=== PATIENT | female | born 1980 | race Hispanic/Latino ===

== ENCOUNTER 2016-10-08 10:42 | Inpatient (IN) | payer BC, OTHER ==
[2016-10-08] VITALS (16 sets, daily range): BP systolic 103–120; BP diastolic 60–82
[~2016-10-08] VITALS: Ht 144.8 cm; Wt 67.0 kg
[2016-10-08 10:47] LABS: URINE BILIRUBIN - DIPSTICK NEGATIVE (NEGATIVE); URINE BLOOD DIPSTICK TRACE-INTACT (NEGATIVE); URINE COLOR YELLOW; URINE GLUCOSE - DIPSTICK NEGATIVE (NEGATIVE); URINE KETONE TRACE mg/dL (NEGATIVE); URINE LEUK ESTERASE LARGE (Negative); URINE NITRITE - DIPSTICK NEGATIVE (Negative); URINE PH 7.5 (4.5-8.0); URINE PROTEIN - DIPSTICK TRACE mg/dL (NEG-TRACE); URINE SPECIFIC GRAVITY 1.015; URINE UROBILINOGEN - DIPSTICK 0.2 E.U./dL (0.2)
[2016-10-08 10:50] LABS: BARBITURATES NEGATIVE (NEGATIVE); COCAINE NEGATIVE (NEGATIVE); METHADONE NEGATIVE (NEGATIVE); OXCYCODONE NEGATIVE (NEGATIVE); TETRAHYDROCANNABIONOL NEGATIVE (NEGATIVE); TRICYLIC ANTIDEPRESSANTS NEGATIVE (NEGATIVE); URINE BACTERIA FEW hpf; URINE CLARITY CLOUDY; URINE EPITHELIAL CELLS MANY EPI/hpf (0-FEW); URINE RBC 0-2 RBC/hpf (0-5); URINE WBC 20-50 WBC/hpf (0-5)
[2016-10-08 12:50] LABS: HEMATOCRIT 37.7 % (37.0-47.0); HEMOGLOBIN 12.8 g/dl (12.0-16.0); IMMATURE GRANULOCYTES 0.8 % (0.0-1.0); MEAN CELL VOLUME 93.1 fL CALC (80.0-100.0); MEAN CORPUSCULAR HGB 31.6 pG CALC (26.0-32.0); NEUT# 7.06 thou/uL (2.00-7.15); RED BLOOD COUNT 4.05 mill/uL (4.20-5.60); RED CELL DISTRI WIDTH 13.6 % (11.5-15.5)
[2016-10-08 12:58] LABS: ALBUMIN 3.4 g/dL (3.2-5.0); ALKALINE PHOSPHATASE 137 u/l (38-126); ANION GAP 13 (6-22 (CALC)); BILIRUBIN, TOTAL 0.3 mg/dL (0.0-1.4); BUN 9 mg/dL (7-17); BUN/CREATININE RATIO 18 (12-20 (CALC)); CALCIUM 8.6 mg/dL (8.4-10.2); CARBON DIOXIDE 19 mmol/l (22-30); CHLORIDE 106 mmol/l (95-108); CREATININE 0.5 mg/dL (0.5-1.0); GFR > 60 ML/MIN (>=60 (CALC)); GFR FOR AFR.AMER. > 60 ML/MIN (>=60 (CALC)); GLUCOSE 156 mg/dL (65-105); POTASSIUM 3.7 mmol/l (3.5-5.1); SGOT/AST 26 u/l (14-36); SGPT/ALT 27 u/l (9-52); SODIUM 135 mmol/l (137-146); TOTAL PROTEIN 6.3 g/dL (6.3-8.2)
[2016-10-08] MEDS ORDERED: PRE-NATAL PO (13:53)
[2016-10-09 04:39] VITALS: BP 94/51
[2016-10-09 05:41] LABS: HEMATOCRIT 34.7 % (37.0-47.0); HEMOGLOBIN 11.9 g/dl (12.0-16.0); IMMATURE GRANULOCYTES 0.9 % (0.0-1.0); MEAN CELL VOLUME 92.5 fL CALC (80.0-100.0); MEAN CORPUSCULAR HGB 31.7 pG CALC (26.0-32.0); MEAN CORPUSCULAR HGB CONC 34.3 g/L CALC (32.0-36.0); NEUT# 9.13 thou/uL (2.00-7.15); RED BLOOD COUNT 3.75 mill/uL (4.20-5.60); RED CELL DISTRI WIDTH 13.4 % (11.5-15.5)
[2016-10-09 16:30] VITALS: BP 91/51
[2016-10-09 20:40] VITALS: BP 104/69
[2016-10-10 05:55] VITALS: BP 93/68
[2016-10-10 10:30] VITALS: BP 113/76
[2016-10-10 10:45] VITALS: BP 110/70
[2016-10-10 11:15] VITALS: BP 108/74
[2016-10-10 11:45] VITALS: BP 100/75
[2016-10-10 20:05] VITALS: BP 104/62
[2016-10-11 06:00] VITALS: BP 97/52
[2016-10-11 07:42] VITALS: BP 91/66
== END 2016-10-11 12:25 | disposition home or self-care (01) | DRG 767 ==
LOC: OBOP 10:42 → OB 10:42 → OBOP 10:44 → OB 10:45
PROC: 10E0XZZ Delivery of Products of Conception, External Approach (ICD-10-PCS; principal; 2016-10-08)
PROC: 0UB70ZZ Excision of Bilateral Fallopian Tubes, Open Approach (ICD-10-PCS; 2016-10-10)
DX: O99.824 Streptococcus B carrier state complicating childbirth (principal); Z37.0 Single live birth; Z3A.39 39 weeks gestation of pregnancy
CPT/HCPCS: J2540; J2710

== ENCOUNTER 2021-11-21 09:59 | Emergency (ER) | payer BC ==
[~2021-11-21] VITALS: Ht 144.8 cm; Wt 74.0 kg
[~2021-11-21 09:59] MED LIST: PRE-NATAL PO
[2021-11-21 10:26] VITALS: BP 122/90
[2021-11-21 12:02] LABS: URINE BILIRUBIN - DIPSTICK NEGATIVE (NEGATIVE); URINE BLOOD DIPSTICK NEGATIVE (NEGATIVE); URINE COLOR YELLOW; URINE GLUCOSE - DIPSTICK NEGATIVE (NEGATIVE); URINE KETONE NEGATIVE (NEGATIVE); URINE LEUK ESTERASE TRACE (NEGATIVE); URINE PROTEIN - DIPSTICK NEGATIVE (NEG-TRACE); URINE SPECIFIC GRAVITY 1.025; URINE UROBILINOGEN - DIPSTICK 0.2 E.U./dL (0.2)
[2021-11-21 12:05] LABS: URINE NITRITE - DIPSTICK NEGATIVE (Negative)
[2021-11-21 12:11] LABS: HEMATOCRIT 39.9 % (37.0-47.0); HEMOGLOBIN 13.2 g/dl (12.0-16.0); IMMATURE GRANULOCYTES 0.3 % (0.0-5.0); MEAN CELL VOLUME 91.1 fL CALC (80.0-100.0); MEAN CORPUSCULAR HGB 30.1 pG CALC (26.0-32.0); MEAN CORPUSCULAR HGB CONC 33.1 g/dL CAL (32.0-36.0); NEUT# 4.14 thou/uL (2.00-7.15); RED BLOOD COUNT 4.38 mill/uL (4.20-5.60); RED CELL DISTRI WIDTH 11.9 % (11.5-15.5)
[2021-11-21 12:30] LABS: ALBUMIN 4.5 g/dL (3.2-5.0); ALKALINE PHOSPHATASE 99 u/l (38-126); ANION GAP 13 (6-22 (CALC)); BILIRUBIN, TOTAL 0.6 mg/dL (0.0-1.4); BUN 8 mg/dL (7-17); BUN/CREATININE RATIO 20 (12-20 (CALC)); CARBON DIOXIDE 23 mmol/l (22-30); CHLORIDE 105 mmol/l (95-108); CPK 71 u/l (30-165); CREATININE 0.4 mg/dL (0.5-1.0); GFR FOR AFR.AMER. > 60 ML/MIN (>=60 (CALC)); GFR OTHER RACES > 60 ML/MIN (>=60 (CALC)); POTASSIUM 4.3 mmol/l (3.5-5.1); SGOT/AST 44 u/l (14-36); SODIUM 137 mmol/l (137-146); TOTAL PROTEIN 7.9 g/dL (6.3-8.2)
[2021-11-21] MEDS ORDERED: ANTIVERT25 M1 PO (13:16)
[2021-11-21 13:28] VITALS: BP 122/90
== END 2021-11-21 13:34 | disposition home or self-care (01) | DRG 149 ==
LOC: ED 09:59
PROVIDERS: Internal Medicine
DX: R42 Dizziness and giddiness (principal); H74.8X9 Other specified disorders of middle ear and mastoid, unspecified ear

== ENCOUNTER 2024-03-17 14:59 | Emergency (ER) | payer BC ==
[~2024-03-17] VITALS: Ht 144.8 cm; Wt 70.7 kg
[~2024-03-17 14:59] MED LIST changes: +ANTIVERT25 M1 PO
[2024-03-17 15:06] VITALS: BP 95/60
[2024-03-17 15:15] VITALS: BP 107/62
[2024-03-17 15:30] VITALS: BP 102/62
[2024-03-17] MEDS ORDERED: TAM75CAP PO (15:41)
[2024-03-17 15:45] VITALS: BP 104/62; BP 93/63
== END 2024-03-17 15:54 | disposition home or self-care (01) | DRG 195 ==
LOC: ED 14:59
DX: J10.1 Influenza due to other identified influenza virus with other respiratory manifestations (principal); Z20.822 Contact with and (suspected) exposure to COVID-19